=== PATIENT | female | born 1965 | race Caucasian/White ===

== ENCOUNTER 2016-07-10 10:27 | Emergency (ER) | payer MEDICARE ==
[~2016-07-10] VITALS: Ht 162.6 cm; Wt 80.3 kg
[~2016-07-10 10:27] MED LIST: *MAYHAVE; AMBIEN5; ANEXSIA5 PO; ATIV1TAB2; ATIVAN PO; BUSP10TA2; DICLOFENAC PR; EFFEXOR PO; GEOD20CA14; GEODON; GEODON PO; GEODON80; MEDROLDP PO; NYSTATINP TOPICAL; TOPAMAX PO; ULTRAM50 PO; VICO5TAB OR; VOLTAREN PO
[2016-07-10] MEDS ORDERED: XARE20TA PO (11:00)
[2016-07-10] MEDS ORDERED: ATOR1TAB21 PO (11:00)
[2016-07-10] MEDS ORDERED: PERC10TA17 PO (11:00)
[2016-07-10] MEDS ORDERED: LAMI1TAB7 PO (11:00)
[2016-07-10 11:58] LABS: CALCIUM OXALATE CRYSTALS SMALL
[2016-07-10 12:19] LABS: BASO % 0.4 % (0.0-1.0); EOS # 0.3 K/mm3 (0.0-0.50); LARGE UNSTAINED CELL # 0.1 K/mm3 (0.0-0.4); LARGE UNSTAINED CELL % 1.4 % (0.0-4.0); LYMPH # 1.7 K/mm3 (1.5-4.5); LYMPH % 24.2 % (24.0-44.0); MEAN CORPUSCULAR HEMOGLOBIN 32.7 pg (27.0-33.0); MEAN CORPUSCULAR HGB CONC 34.2 g/dl (32.0-36.5); MEAN CORPUSCULAR VOLUME 95.4 fl (80.0-96.0); MONO # 0.4 K/mm3 (0.0-0.8); MONO % 5.6 % (0.0-5.0); NEUTROPHILS # 4.4 K/mm3 (1.8-7.7); NEUTROPHILS % 64.4 % (36.0-66.0); PLATELET COUNT, AUTOMATED 160 k/mm3 (150-450); RED CELL DISTRIBUTION WIDTH 12.2 % (11.5-14.5); WHITE BLOOD COUNT 6.8 K/mm3 (4.0-10.0)
[2016-07-10 12:41] LABS: ALBUMIN/GLOBULIN RATIO 1.14 (1.00-1.93); ALKALINE PHOSPHATASE 73 U/L (45-117); ALT/SGPT 13 U/L (12-78); ANION GAP 5 MEQ/L (8-16); AST/SGOT 10 U/L (15-37); BILIRUBIN,DIRECT 0.1 MG/DL (0.0-0.2); BILIRUBIN,TOTAL 0.5 MG/DL (0.2-1.0); BLOOD UREA NITROGEN 12 MG/DL (7-18); CALCIUM LEVEL 9.5 MG/DL (8.5-10.1); CARBON DIOXIDE LEVEL 28 MEQ/L (21-32); CHLORIDE LEVEL 112 MEQ/L (98-107); CREATININE FOR GFR 0.79 MG/DL (0.55-1.02); GLOMERULAR FILTRATION RATE > 60.0 (>51); GLUCOSE, FASTING 91 MG/DL (70-105); POTASSIUM SERUM 4.5 MEQ/L (3.5-5.1); SODIUM LEVEL 145 MEQ/L (136-145); TOTAL PROTEIN 7.5 GM/DL (6.4-8.2)
[2016-07-10 13:19] VITALS: BP 134/78
--- NOTE | 2016-07-11 06:04 | REP ---
CT ABDOMEN AND PELVIS WITHOUT CONTRAST: HISTORY: Right flank pain. COMPARISON: 04/07/2010. Calcifications are present in the kidneys consistent with nephrolithiasis. There is no hydroureter. The liver, gallbladder, pancreas, spleen and adrenal glands are normal in appearance. There is no mass, adenopathy or free fluid. Linear densities are present in the lower lobes consistent with scarring. Urinary bladder and uterus are normal in appearance. Degenerative change is present in the spine. IMPRESSION: Bilateral nephrolithiasis. Signed by Kodi Momin MD 07/11/2016 08:17 A
== END 2016-07-10 13:20 | disposition home or self-care (01) ==
LOC: M ED 11:26
DX: N20.0 Calculus of kidney (principal); N23 Unspecified renal colic; R11.0 Nausea; E78.00 Pure hypercholesterolemia, unspecified; F31.9 Bipolar disorder, unspecified; Z86.711 Personal history of pulmonary embolism; Z90.89 Acquired absence of other organs; Z79.01 Long term (current) use of anticoagulants; Z87.891 Personal history of nicotine dependence

== ENCOUNTER → 2016-08-22 | Outpatient (CLI) | payer MEDICARE ==
[~2016-08-22] MED LIST changes: +ATOR1TAB21 PO; +ISOVUE-370 76% 100ML VIAL (Q9967) As Ordered ONE; +LAMI1TAB7 PO; +PERC10TA17 PO; +XARE20TA PO
--- NOTE | 2016-08-22 12:55 | REP ---
CT of the chest with IV contrast: Comparisons are 02/24/2015, 05/11/2015 and 02/18/2016. On 2014, there was a large pleural-based density in the left lower lobe. On 05/11/2015 this density had decreased in size but there were new pleural-based densities posteriorly in the left lower lobe, posteriorly in the right lower lobe and in the lateral segment of the right middle lobe. The density in the lateral segment right middle lobe today is unchanged from 04/20/2015, but significantly decreased from 05/11/2015, compatible with parenchymal scar. The densities in the left lower lobe are significantly decreased from 05/11/2015 and unchanged from 04/20/2015, compatible with parenchymal scars. The densities in the right lower lobe are significantly decreased from 05/11/2015 and unchanged from 04/20/2015, compatible with parenchymal scarring. There are no new densities on the study today. There is no mediastinal or axillary adenopathy. No hilar adenopathy. Thoracic aorta is unremarkable. Cardiac size is normal. No pericardial effusion. The visualized upper abdominal contents are unremarkable. There is no adrenal mass. Impression: All of the previous lung densities have decreased in size compared to 05/11/2015, and are stable from 02/18/2016, compatible with parenchymal scarring. No new densities are identified. Signed by Jairo Gómez MD 08/22/2016 12:46 P
== END ==
LOC: M RAD 10:50
PROVIDERS: ATTEND Family Medicine
DX: R91.8 Other nonspecific abnormal finding of lung field (principal)
CPT/HCPCS: 71260; Q9967

== ENCOUNTER 2016-10-01 13:51 | Emergency (ER) | payer MEDICARE ==
[~2016-10-01] VITALS: Ht 162.6 cm; Wt 84.3 kg
[~2016-10-01 13:51] MED LIST changes: -ISOVUE-370 76% 100ML VIAL (Q9967) As Ordered ONE; -PERC10TA17 PO; +PERC10TA26 PO
[2016-10-01] MEDS ORDERED: AMPICILLIN SOD/SULBACTAM SOD 3 GM in D5W MINI-BAG PLUS 100 ML IV ONE (14:15)
[2016-10-01 14:31] LABS: BASO % 0.7 % (0.0-1.0); EOS # 0.2 K/mm3 (0.0-0.50); EOS % 3.5 % (0.0-3.0); LARGE UNSTAINED CELL # 0.1 K/mm3 (0.0-0.4); LYMPH # 2.1 K/mm3 (1.5-4.5); LYMPH % 28.8 % (24.0-44.0); MEAN CORPUSCULAR HEMOGLOBIN 31.8 pg (27.0-33.0); MEAN CORPUSCULAR HGB CONC 33.4 g/dl (32.0-36.5); MEAN CORPUSCULAR VOLUME 95.2 fl (80.0-96.0); MONO # 0.4 K/mm3 (0.0-0.8); MONO % 5.1 % (0.0-5.0); NEUTROPHILS # 4.3 K/mm3 (1.8-7.7); NEUTROPHILS % 60.9 % (36.0-66.0); PLATELET COUNT, AUTOMATED 164 k/mm3 (150-450); RED CELL DISTRIBUTION WIDTH 12.7 % (11.5-14.5); WHITE BLOOD COUNT 7.1 K/mm3 (4.0-10.0)
[2016-10-01 14:52] LABS: ANION GAP 9 MEQ/L (8-16); BLOOD UREA NITROGEN 8 MG/DL (7-18); CALCIUM LEVEL 9.3 MG/DL (8.5-10.1); CARBON DIOXIDE LEVEL 24 MEQ/L (21-32); CHLORIDE LEVEL 112 MEQ/L (98-107); CREATININE FOR GFR 0.83 MG/DL (0.55-1.02); GLOMERULAR FILTRATION RATE > 60.0 (>51); GLUCOSE, FASTING 85 MG/DL (70-105); POTASSIUM SERUM 4.3 MEQ/L (3.5-5.1); SODIUM LEVEL 145 MEQ/L (136-145)
[2016-10-01] MEDS ORDERED: AUGM875T28 PO (15:19)
[2016-10-01 15:29] VITALS: BP 137/78
== END 2016-10-01 15:41 | disposition home or self-care (01) ==
LOC: M ED 13:51
DX: K04.7 Periapical abscess without sinus (principal); E78.00 Pure hypercholesterolemia, unspecified; F41.9 Anxiety disorder, unspecified; F43.10 Post-traumatic stress disorder, unspecified; F31.9 Bipolar disorder, unspecified; Z79.01 Long term (current) use of anticoagulants; Z79.899 Other long term (current) drug therapy; Z90.89 Acquired absence of other organs; Z86.711 Personal history of pulmonary embolism

== ENCOUNTER → 2017-05-08 | Outpatient (CLI) | payer MEDICARE ==
[2017-05-08 10:36] LABS: HEMOGLOBIN 15.2 g/dl (12.0-16.0)
[2017-05-08 10:57] LABS: INR 1.15; PROTHROMBIN TIME 14.9 SECONDS (12.4-14.5)
[2017-05-08 10:58] LABS: PARTIAL THROMBOPLASTIN TIME 34.2 SECONDS (26.8-37.9)
== END ==
LOC: M ADMPAT 09:31
DX: Z01.818 Encounter for other preprocedural examination (principal); M48.00 Spinal stenosis, site unspecified
CPT/HCPCS: 85018

== ENCOUNTER 2017-05-15 08:49 | Inpatient (IN) | payer MEDICARE ==
[2017-05-15] MEDS ORDERED: LIDOCAINE 1% MDV 20ML VIAL SQ (09:00)
[2017-05-15] MEDS: ATORVASTATIN 20 MG TAB PO (09:00)
[2017-05-15] MEDS: lamoTRIgine 100MG TAB PO (09:00)
[2017-05-15] MEDS ORDERED: ROCURONIUM BROMIDE 50 MG/5 ML VIAL As Ordered ×2 (10:03→13:38)
[2017-05-15] MEDS ORDERED: LIDOCAINE 2% INJ 100 MG/5 ML SDV (FOR ANES.) As Ordered (10:03)
[2017-05-15] MEDS ORDERED: fentaNYL 100 MCG/2 ML INJECTION (J3010) As Ordered ×4 (10:04→15:53)
[2017-05-15] MEDS ORDERED: PROPOFOL 200 MG/20 ML VIAL As Ordered ×2 (10:04→14:47)
[2017-05-15] MEDS: LR 1,000 ML IV ×2 (10:20→16:15)
[2017-05-15] MEDS ORDERED: CEFAZOLIN 100MG/ML SYRINGE 1GM(J0690 PER 500MG) As Ordered (11:50)
[2017-05-15] MEDS: PREGABALIN 75 MG CAP(LYRICA) PO (12:00)
[2017-05-15] MEDS: PERCOCET 5MG/325MG TAB PO ×4 (12:00→21:01)
[2017-05-15] MEDS: NYSTATIN CREAM 15 GM TOP ×2 (12:00→21:00)
[2017-05-15] MEDS: CelecoXIB 400 MG CAP PO (12:00)
[2017-05-15] MEDS: CEFAZOLIN SOD 1 GM in APPROPRIATE DILUENT 1 EA IV (12:49)
[2017-05-15] MEDS: LIDOCAINE W/EPINEPHRINE 1% 20ML VIAL As Ordered (13:05)
[2017-05-15] MEDS ORDERED: dexameTHASONE 4 MG/ML 1ML VIAL (J1100) As Ordered (13:09)
[2017-05-15] MEDS ORDERED: ONDANSETRON 4MG/2ML VIAL (J2405) As Ordered (13:24)
[2017-05-15] MEDS ORDERED: MIDAZOLAM INJ 2 MG/2 ML VIAL (J2250) As Ordered (13:24)
[2017-05-15] MEDS ORDERED: GLYCOPYRROLATE INJ 0.2 MG/ML 2 ML VIAL As Ordered (13:24)
[2017-05-15] MEDS ORDERED: NEOSTIGMINE 10 MG/10 ML VIAL (J2710) As Ordered (13:25)
[2017-05-15] MEDS: THROMBIN SOLN 20,000 UNITS KIT As Ordered (13:29)
[2017-05-15] MEDS: BACITRACIN PWD 50,000 UNITS VIAL As Ordered (13:42)
[2017-05-15] MEDS ORDERED: PHENYLEPHRINE INJ 10MG/ML VIAL (J2370) As Ordered (15:13)
[2017-05-15] MEDS: BUPIVACAINE LIPOSOME/PF 1.3% 20 ML VIAL (13.3MG/ML)(EXPAREL) As Ordered (15:30)
[2017-05-15] MEDS: BUPIVACAINE HCL 0.5% 10 ML VIAL As Ordered (15:30)
[2017-05-15] MEDS ORDERED: HYDROmorphone HCL 1 MG/ML SYRINGE (J1170) As Ordered (16:01)
[2017-05-15] MEDS: HYDROmorphone HCL 1 MG/ML SYRINGE (J1170) IV ×8 (16:12→17:18)
[2017-05-15] MEDS ORDERED: fentaNYL 100 MCG/2 ML INJECTION (J3010) IV (16:15)
[2017-05-15] MEDS ORDERED: ONDANSETRON 4MG/2ML VIAL (J2405) IV (16:15)
[2017-05-15] MEDS ORDERED: HYDROmorphone HCL 1 MG/ML SYRINGE (J1170) IV ×2 (16:30)
[2017-05-15] MEDS: D5W/LR 1,000 ML IV (18:30)
[2017-05-15] MEDS ORDERED: PERCOCET 5MG/325MG TAB PO (18:30)
[2017-05-15] MEDS: TOPIRAMATE (TopAMAX) 100 MG TAB PO (21:00)
[2017-05-16] MEDS: PERCOCET 5MG/325MG TAB PO ×3 (03:50→15:47)
[2017-05-16 06:46] LABS: BASO % 0.4 % (0.0-1.0); EOS # 0.1 10^3/uL (0.0-0.50); EOS % 0.5 % (0.0-3.0); HEMATOCRIT 38.1 % (36.0-47.0); HEMOGLOBIN 12.6 g/dl (12.0-16.0); IMMATURE GRANULOCYTE % 0.5 % (0-3.0); LYMPH # 2.5 10^3/uL (1.5-4.5); LYMPH % 24.1 % (24.0-44.0); MEAN CORPUSCULAR HEMOGLOBIN 31.1 pg (27.0-33.0); MEAN CORPUSCULAR HGB CONC 33.1 g/dl (32.0-36.5); MEAN CORPUSCULAR VOLUME 94.1 fl (80.0-96.0); MONO # 0.9 10^3/uL (0.0-0.8); MONO % 8.5 % (0.0-5.0); NEUTROPHILS # 6.7 10^3/uL (1.8-7.7); PLATELET COUNT, AUTOMATED 132 10^3/uL (150-450); RED BLOOD COUNT 4.05 10^6/uL (4.00-5.40); RED CELL DISTRIBUTION WIDTH 12.3 % (11.5-14.5); WHITE BLOOD COUNT 10.2 10^3/uL (4.0-10.0)
[2017-05-16 07:01] LABS: ANION GAP 6 MEQ/L (8-16); BLOOD UREA NITROGEN 11 MG/DL (7-18); CALCIUM LEVEL 8.4 MG/DL (8.5-10.1); CARBON DIOXIDE LEVEL 26 MEQ/L (21-32); CHLORIDE LEVEL 110 MEQ/L (98-107); CREATININE FOR GFR 0.76 MG/DL (0.55-1.30); GLOMERULAR FILTRATION RATE > 60.0 (>51); GLUCOSE, FASTING 112 MG/DL (70-100); POTASSIUM SERUM 3.5 MEQ/L (3.5-5.1); SODIUM LEVEL 142 MEQ/L (136-145)
[2017-05-16] MEDS: TIOTROPIUM INHALER/CAPSULE (SPIRIVA) INH (07:14)
[2017-05-16] MEDS: METAMUCIL (PSYLLIUM) PACKET PO (08:43)
[2017-05-16] MEDS: MOM 30ML SUSPENSION UDC PO (08:43)
[2017-05-16] MEDS: ATORVASTATIN 20 MG TAB PO (08:43)
[2017-05-16] MEDS: TOPIRAMATE (TopAMAX) 100 MG TAB PO ×2 (08:43→20:28)
[2017-05-16] MEDS: lamoTRIgine 100MG TAB PO (08:43)
[2017-05-16] MEDS: NYSTATIN CREAM 15 GM TOP ×2 (08:44→20:29)
[2017-05-16] MEDS: tiZANidine 4 MG TAB PO (20:28)
[2017-05-16] MEDS: LORazepam 1 MG TAB PO (20:28)
[2017-05-17] MEDS: tiZANidine 4 MG TAB PO (05:23)
[2017-05-17] MEDS: PERCOCET 5MG/325MG TAB PO ×2 (05:24→10:31)
[2017-05-17] MEDS: TIOTROPIUM INHALER/CAPSULE (SPIRIVA) INH (07:19)
[2017-05-17] MEDS: lamoTRIgine 100MG TAB PO (08:44)
[2017-05-17] MEDS: ATORVASTATIN 20 MG TAB PO (08:44)
[2017-05-17] MEDS: MOM 30ML SUSPENSION UDC PO (08:45)
[2017-05-17] MEDS: MORPHINE 15 MG SA TAB PO (08:45)
[2017-05-17] MEDS: TOPIRAMATE (TopAMAX) 100 MG TAB PO (08:45)
[2017-05-17] MEDS: NYSTATIN CREAM 15 GM TOP (08:45)
[2017-05-17] MEDS: METAMUCIL (PSYLLIUM) PACKET PO (08:45)
[2017-05-17] MEDS: CelecoXIB 400 MG CAP PO (10:31)
[2017-05-17] MEDS ORDERED: RIVAROXABAN 20 MG TAB (XARELTO) PO (18:00)
== END 2017-05-17 12:55 | disposition home or self-care (01) | DRG 520 ==
LOC: M OR 08:49 → M MS5PR 17:35
PROC: 00NY0ZZ Release Lumbar Spinal Cord, Open Approach (ICD-10-PCS; principal; 2017-05-15 10:30)
PROC: 0QB00ZZ Excision of Lumbar Vertebra, Open Approach (ICD-10-PCS; 2017-05-15 10:30)
DX: M51.26 Other intervertebral disc displacement, lumbar region (principal); M48.061 Spinal stenosis, lumbar region without neurogenic claudication; M43.16 Spondylolisthesis, lumbar region; E78.5 Hyperlipidemia, unspecified; F41.9 Anxiety disorder, unspecified; F31.9 Bipolar disorder, unspecified; R32 Unspecified urinary incontinence; Z86.711 Personal history of pulmonary embolism; Z79.01 Long term (current) use of anticoagulants; Z79.899 Other long term (current) drug therapy; Z86.718 Personal history of other venous thrombosis and embolism; Z87.891 Personal history of nicotine dependence

== ENCOUNTER → 2017-10-02 | Outpatient (CLI) | payer MEDICARE | LOC: M WHC 13:16 | DX: Z12.31 Encounter for screening mammogram for malignant neoplasm of breast (principal) | CPT/HCPCS: 77067 ==

== ENCOUNTER → 2017-10-19 | Outpatient (CLI) | payer MEDICARE ==
[2017-10-19 11:56] LABS: BASO # 0.1 10^3/uL (0.0-0.2); EOS # 0.1 10^3/uL (0.0-0.50); EOS % 2.8 % (0.0-3.0); HEMATOCRIT 45.9 % (36.0-47.0); HEMOGLOBIN 15.3 g/dl (12.0-15.5); IMMATURE GRANULOCYTE % 0.2 % (0-3.0); LYMPH # 1.8 10^3/uL (1.5-4.5); LYMPH % 35.8 % (24.0-44.0); MEAN CORPUSCULAR HEMOGLOBIN 30.8 pg (27.0-33.0); MEAN CORPUSCULAR HGB CONC 33.3 g/dl (32.0-36.5); MEAN CORPUSCULAR VOLUME 92.5 fl (80.0-96.0); MONO # 0.4 10^3/uL (0.0-0.8); MONO % 7.9 % (0.0-5.0); NEUTROPHILS # 2.7 10^3/uL (1.8-7.7); NEUTROPHILS % 52.3 % (36.0-66.0); PLATELET COUNT, AUTOMATED 148 10^3/uL (150-450); RED BLOOD COUNT 4.96 10^6/uL (4.00-5.40); RED CELL DISTRIBUTION WIDTH 12.7 % (11.5-14.5); WHITE BLOOD COUNT 5.1 10^3/uL (4.0-10.0)
[2017-10-19 14:40] LABS: ALBUMIN/GLOBULIN RATIO 1.18 (1.00-1.93); ALKALINE PHOSPHATASE 89 U/L (45-117); ALT/SGPT 17 U/L (12-78); ANION GAP 10 MEQ/L (8-16); AST/SGOT 7 U/L (7-37); BILIRUBIN,TOTAL 0.4 MG/DL (0.2-1.0); BLOOD UREA NITROGEN 17 MG/DL (7-18); CARBON DIOXIDE LEVEL 23 MEQ/L (21-32); CHLORIDE LEVEL 113 MEQ/L (98-107); CHOLESTEROL LEVEL 167 MG/DL (<200); CHOLESTEROL RISK RATIO 3.479 (<5); CREATININE FOR GFR 0.85 MG/DL (0.55-1.30); GLOMERULAR FILTRATION RATE > 60.0 (>51); GLUCOSE, FASTING 84 MG/DL (70-100); HDL CHOLESTEROL 48 MG/DL (>40); LDL CHOLESTEROL 96.8 MG/DL (<100); NON-HDL-C 119 MG/DL; POTASSIUM SERUM 4.1 MEQ/L (3.5-5.1); SODIUM LEVEL 146 MEQ/L (136-145); THYROID STIMULATING HORMONE 0.849 uIU/ML (0.358-3.740); TOTAL PROTEIN 7.4 GM/DL (6.4-8.2); TRIGLYCERIDES LEVEL 111 MG/DL (<150)
== END ==
LOC: M LAB 11:19
DX: Z79.899 Other long term (current) drug therapy (principal)
CPT/HCPCS: 84443

== ENCOUNTER → 2018-07-06 | Outpatient (CLI) | payer MEDICARE ==
[~2018-07-06] MED LIST changes: +AUGM875T28 PO; +CHAN1PAK13
[2018-07-06 11:05] LABS: BASO # 0.1 10^3/uL (0.0-0.2); BASO % 0.7 % (0.0-1.0); EOS # 0.3 10^3/uL (0.0-0.50); EOS % 4.4 % (0.0-3.0); HEMATOCRIT 46.7 % (36.0-47.0); HEMOGLOBIN 15.1 g/dl (12.0-15.5); LYMPH % 29.9 % (24.0-44.0); MEAN CORPUSCULAR HEMOGLOBIN 29.8 pg (27.0-33.0); MEAN CORPUSCULAR HGB CONC 32.3 g/dl (32.0-36.5); MEAN CORPUSCULAR VOLUME 92.3 fl (80.0-96.0); MONO # 0.5 10^3/uL (0.0-0.8); NEUTROPHILS # 3.9 10^3/uL (1.8-7.7); NEUTROPHILS % 56.9 % (36.0-66.0); PLATELET COUNT, AUTOMATED 142 10^3/uL (150-450); RED BLOOD COUNT 5.06 10^6/uL (4.00-5.40); WHITE BLOOD COUNT 6.8 10^3/uL (4.0-10.0)
[2018-07-06 11:46] LABS: ALBUMIN 3.9 GM/DL (3.2-5.2); ALT/SGPT 16 U/L (12-78); BILIRUBIN,TOTAL 0.3 MG/DL (0.2-1.0); BLOOD UREA NITROGEN 13 MG/DL (7-18); CALCIUM LEVEL 8.9 MG/DL (8.5-10.1); CARBON DIOXIDE LEVEL 26 MEQ/L (21-32); CHLORIDE LEVEL 111 MEQ/L (98-107); CREATININE FOR GFR 0.74 MG/DL (0.55-1.30); GLOMERULAR FILTRATION RATE > 60.0 (>51); GLUCOSE, FASTING 89 MG/DL (70-100); POTASSIUM SERUM 4.3 MEQ/L (3.5-5.1); SODIUM LEVEL 143 MEQ/L (136-145)
== END ==
LOC: M LAB 10:25
PROVIDERS: ATTEND Family Medicine
DX: R63.5 Abnormal weight gain (principal); R60.9 Edema, unspecified

== ENCOUNTER → 2018-10-23 | Outpatient (CLI) | payer MEDICARE ==
--- NOTE | 2018-10-23 14:41 | REPMRS ---
Patient History The patient states she has not had a clinical breast exam in over a year. Family history of breast cancer at age 50 or over in paternal grandmother. Digital Woman Screen Mammo: October 23, 2018 - Exam #: [id number] Bilateral CC and MLO view(s) were taken. Technologist: Argenis Stark, Technologist Prior study comparison: October 02, 2017, bilateral digital woman screen mammo performed at [facility]. November 27, 2015, digital woman screen mammo performed at [facility]. November 25, 2014, digital woman screen mammo performed at [facility]. FINDINGS: The breast tissue is almost entirely fat. There has been no change in the appearance of the mammogram from the prior studies. There is no interval development of dominant mass, architectural distortion, or grouped microcalcification typical of malignancy. 3-D tomosynthesis shows no additional findings. Assessment: BI-RADS/ACR category 1 mammogram. Negative Mammogram. Recommendation Routine screening mammogram of both breasts in 1 year (for women over age 40). This patient's Lifetime Breast Cancer RIsk is estimated at 13.2 %. This mammogram was interpreted with the aid of an FDA-approved computer-aided dectection system. Electronically Signed By: Omar Herrmann MD 10/23/18 0923
== END ==
LOC: M WHC 13:00
PROVIDERS: ATTEND Family Medicine
DX: Z12.31 Encounter for screening mammogram for malignant neoplasm of breast (principal)

== ENCOUNTER 2018-12-06 11:09 | Emergency (ER) | payer MEDICARE ==
[~2018-12-06] VITALS: Ht 160 cm; Wt 104.4 kg
[2018-12-06 11:11] VITALS: BP 123/75
[2018-12-06] MEDS ORDERED: TOPI200T7 PO (11:35)
[2018-12-06] MEDS ORDERED: PRED10TA2 PO (12:15)
== END 2018-12-06 12:26 | disposition home or self-care (01) ==
LOC: M ED 11:09
DX: M54.10 Radiculopathy, site unspecified (principal); M48.00 Spinal stenosis, site unspecified; R53.1 Weakness; F17.210 Nicotine dependence, cigarettes, uncomplicated; Z86.711 Personal history of pulmonary embolism; Z79.01 Long term (current) use of anticoagulants; Z79.899 Other long term (current) drug therapy

== ENCOUNTER → 2018-12-07 | Outpatient (CLI) | payer MEDICARE ==
[~2018-12-07] MED LIST changes: +PRED10TA2 PO; +TOPI200T7 PO
--- NOTE | 2018-12-07 20:11 | REP ---
MRI LUMBAR SPINE WITHOUT CONTRAST: 12/07/2018. Comparison: 06/27/2017 without and with contrast MR. Clinical history: Intermittent weakness bilateral lower extremities, spinal stenosis. Prior left L3-4 through L5-S1 laminectomy. Technique: Sagittal T1, T2, STIR with axial T1 and T2 sequences provided. Findings: Normal lordosis noted on the sagittal images. Disc space is narrowed and disc signal lost at L4-5. There is slight narrowing at L1-2. That disc space also shows loss of water signal. There is relative sparing of height and water signal at L2-3 with loss of height at L3-4 with loss of disc water signal and loss of water signal at L5-S1. There is no compression deformity or destructive lesion. Vertebral hemangioma at T11. Conus terminates at the T12-L1 disc level. The T11-12 and T12-L1 disc levels show no disc bulge or herniation and no spinal or foraminal stenosis. At L1-2, there is a broad-based diffuse disc bulge with ligamentum and facet hypertrophy. These combine to cause minimal central canal stenosis with crowding of the nerve roots. The foramina appeared adequate. At L2-3, there is also diffuse disc bulge with ligamentum and facet hypertrophy. Minimal central canal stenosis and flattening of the ventral thecal sac noted. Foramina adequate without L2 nerve root compression on either side. At L3-L4, there is a diffuse disc bulge and a central disc protrusion which has decreased in size from the previous study. Where it measured 7.2 mm in AP dimension on the axial or sagittal image it now only represents 4 mm thickness. There is less central canal stenosis but still crowded nerve roots indicating mild central canal stenosis and contributions from ligamentum and facet hypertrophy. Left hemilaminectomy again noted. The L3 nerve roots show no definite compression on the right. There is some narrowing of the foramen on the left slightly compressing the L3 nerve root. At L4-5, there is mild broad-based disc bulge with small central disc protrusion. Ligamentum and facet hypertrophy are noted particularly on the left facets. Left hemilaminectomy again noted. The cross-sectional area of the central canal was marginally adequate. There is foraminal encroachment bilaterally at this level unchanged. At L5-S1, there is a broad-based disc bulge with left paracentral and intraforaminal disc protrusion again seen. This abuts and slightly displaces the left S1 nerve root in the central canal. Facet hypertrophy is noted. A few millimeters of anterolisthesis of L5 on S1 is noted, felt related to facet arthropathy. Both L5 nerve roots show compression within the foramina. Left laminectomy defect again seen. Impression: 1. Multilevel lumbar spondylosis with minimal central canal stenosis at L1-2 and L2-3 secondary to combined factors. 2. The disc extrusion at L3-4 centrally is smaller than on the previous study with its AP thickness now 4 mm instead of 7.2 mm. Central canal stenosis is unchanged. Foramina without nerve root compression on the right, mild compression on the left for the L3 root. The L3-L4 level is the only significant change in the examination today. 3. The L4-5 disc level shows broad-based disc bulge and mild central disc protrusion with ligamentum and facet hypertrophy with minimal central canal stenosis and bilateral foraminal encroachment, all unchanged. Laminectomy defect at L3-4 through L5-S1 on the left. 4. The L5-S1 level shows left paracentral and intraforaminal disc protrusion which abuts and displaces the S1 nerve root in the left side of the central canal and both foramina show L5 nerve root compression. No other finding. Electronically Signed by Stiven Quiroga MD 12/07/2018 08:31 P
== END ==
LOC: M RAD 18:19
PROVIDERS: ATTEND Emergency Medicine
DX: M47.896 Other spondylosis, lumbar region (principal); M51.27 Other intervertebral disc displacement, lumbosacral region; M51.26 Other intervertebral disc displacement, lumbar region

== ENCOUNTER → 2019-09-04 | Outpatient (CLI) | payer MEDICARE ==
--- NOTE | 2019-09-04 15:36 | REP ---
CHEST, TWO VIEWS: COMPARISON: 09/01/2015 PA and lateral views of the chest is performed. There is no evidence of acute infiltrate. There is mild fibrotic scarring of the lung bases bilaterally. The heart is normal in size. Mediastinal silhouette is unremarkable. There are degenerative changes of the spine. IMPRESSION: Mild chronic changes with no evidence of acute pulmonary disease. Electronically Signed by Jairo Thornton MD 09/04/2019 07:39 P
== END ==
LOC: M RAD 13:19 → M LAB 13:19
PROVIDERS: ATTEND Family Medicine
DX: J98.4 Other disorders of lung (principal); M51.9 Unspecified thoracic, thoracolumbar and lumbosacral intervertebral disc disorder

== ENCOUNTER → 2019-10-11 | Outpatient (CLI) | payer MEDICARE, SELFPAY | LOC: M LABSMTC 12:00 | PROVIDERS: ATTEND Pediatrics | DX: Z20.828 Contact with and (suspected) exposure to other viral communicable diseases (principal); Z11.59 Encounter for screening for other viral diseases ==

== ENCOUNTER → 2019-11-15 | Outpatient (CLI) | payer MEDICARE ==
--- NOTE | 2019-11-15 14:09 | REPMRS ---
Patient History The patient states she has not had a clinical breast exam in over a year. Family history of breast cancer at age 50 or over in paternal grandmother. No Hormone Replacement Therapy 3D TOMOSYNTHESIS WAS PERFORMED. [facility] lifetime risk for breast cancer is 12.9%. [place] DENSITY A. Digital Woman Screen Mammo: November 15, 2019 - Exam #: [id number] Bilateral CC and MLO view(s) were taken. Technologist: Dot Gill, Technologist Prior study comparison: October 23, 2018, bilateral digital woman screen mammo performed at [facility]. October 02, 2017, bilateral digital woman screen mammo performed at [facility]. FINDINGS: There are scattered fibroglandular densities. There has been no change in the appearance of the mammogram from the prior studies. There is a mild amount of residual fibroglandular tissue which is fairly symmetric. There is no interval development of dominant mass, architectural distortion, or clustered microcalcification suggestive of malignancy. Assessment: BI-RADS/ACR category 1 mammogram. Negative Mammogram. Recommendation Routine screening mammogram in 1 year (for women over age 40). This mammogram was interpreted with the aid of an FDA-approved computer-aided dectection system. Electronically Signed By: Jairo Thornton MD 11/15/19 [id number]
== END ==
LOC: M WHC 12:03
PROVIDERS: ATTEND Family Medicine
DX: Z12.31 Encounter for screening mammogram for malignant neoplasm of breast (principal)

== ENCOUNTER → 2020-08-19 | Outpatient (CLI) | payer MEDICARE ==
--- NOTE | 2020-08-19 11:41 | REP ---
INDICATION: CENTRILOBULAR EMPHYSEMA. COMPARISON: Multiple FINDINGS: The superior mediastinal structures are midline. The cardiac silhouette is unremarkable in size, shape, and position. The diaphragmatic surfaces of the lungs are regular, and the costophrenic angles are clear. The pulmonary jenkins are unchanged. Slight bibasilar curvilinear densities are noted status quo. The imaged osseous structures are intact. IMPRESSION: There is no acute cardiopulmonary disease. <Electronically signed by Sonny De La Garza > 08/19/20 [id number]
[2020-08-19 11:44] LABS: BASO # 0.1 10^3/uL (0.0-0.2); EOS # 0.3 10^3/uL (0.0-0.5); EOS % 3.9 % (0.0-3.0); HEMATOCRIT 49.1 % (36.0-47.0); HEMOGLOBIN 15.7 g/dl (12.0-15.5); LYMPH # 1.9 10^3/uL (1.5-5.0); LYMPH % 28.7 % (24.0-44.0); MEAN CORPUSCULAR HEMOGLOBIN 30.5 pg (27.0-33.0); MEAN CORPUSCULAR VOLUME 95.3 fl (80.0-96.0); MONO # 0.4 10^3/uL (0.0-0.8); MONO % 6.3 % (2.0-8.0); NEUTROPHILS % 59.8 % (36.0-66.0); PLATELET COUNT, AUTOMATED 157 10^3/uL (150-450); RED BLOOD COUNT 5.15 10^6/uL (4.00-5.40); WHITE BLOOD COUNT 6.7 10^3/uL (4.0-10.0)
[2020-08-19 12:35] LABS: ALBUMIN 3.8 GM/DL (3.2-5.2); ALT/SGPT 19 U/L (12-78); BILIRUBIN,TOTAL 0.4 MG/DL (0.2-1.0); BLOOD UREA NITROGEN 13 MG/DL (7-18); CALCIUM LEVEL 8.8 MG/DL (8.5-10.1); CARBON DIOXIDE LEVEL 23 MEQ/L (21-32); CHLORIDE LEVEL 112 MEQ/L (98-107); CHOLESTEROL LEVEL 174 MG/DL (<200); CHOLESTEROL RISK RATIO 4.046 (<5); CREATININE FOR GFR 0.75 MG/DL (0.55-1.30); GLOMERULAR FILTRATION RATE > 60.0 (>51); GLUCOSE, FASTING 89 MG/DL (70-100); HDL CHOLESTEROL 43 MG/DL (>40); LDL CHOLESTEROL 95 MG/DL (<100); NON-HDL-C 131 MG/DL; POTASSIUM SERUM 4.5 MEQ/L (3.5-5.1); SODIUM LEVEL 145 MEQ/L (136-145); THYROID STIMULATING HORMONE 0.953 uIU/ML (0.358-3.740); TOTAL PROTEIN 7.2 GM/DL (6.4-8.2); TRIGLYCERIDES LEVEL 179 MG/DL (<150)
[2020-08-19 19:37] LABS: HEMOGLOBIN A1c 5.1 %
== END ==
LOC: M LAB 10:59
PROVIDERS: ATTEND Family Medicine
DX: Z79.899 Other long term (current) drug therapy (principal)

== ENCOUNTER → 2020-09-11 | Outpatient (CLI) | payer MEDICARE ==
[~2020-09-11] MED LIST changes: +LATU20TA PO; +LORA1TAB4 PO; +PROAAER10 INH; +SPIR12.9 INH; +TERB250T12 PO
== END ==
LOC: M LABSMTC 12:21
PROVIDERS: ATTEND Anesthesiology
DX: Z01.818 Encounter for other preprocedural examination (principal); Z11.52 Encounter for screening for COVID-19

== ENCOUNTER → 2020-11-24 | Outpatient (CLI) | payer MEDICARE ==
[~2020-11-24] MED LIST changes: -TERB250T12 PO; +TERB250T91 PO
--- NOTE | 2020-11-24 11:50 | REPMRS ---
Patient History The patient states she has not had a clinical breast exam in over a year. Family history of breast cancer at age 50 or over in paternal grandmother. No Hormone Replacement Therapy Patient states no breast complaints today. Patient has signed MRS History Sheet. Digital Woman Screen Mammo: November 24, 2020 - Exam #: [id number] Bilateral CC and MLO view(s) were taken. Technologist: Argenis Stark, Technologist Prior study comparison: November 15, 2019, bilateral digital woman screen mammo performed at [facility]. October 23, 2018, bilateral digital woman screen mammo performed at [facility]. FINDINGS: There are scattered fibroglandular densities. Screening. Digital screening (2D) mammography was performed bilaterally in the CC and MLO projections. Additionally, breast tomosynthesis (3D mammography) was performed bilaterally in the CC and MLO projections. Todays exam was compared to the prior exam/exams. By history, the patient has no complaints of a palpable breast abnormality or other significant breast complaints. The breasts are unchanged in size and shape. There are no kirstie-soft tissue densities or spiculated masses. There is no internal architectural distortion. There are no suspicious kirstie-calcific clusters. Skin thickening or nipple retraction is not present. IMPRESSION: BI-RADS Category 2- Benign Findings. There is no evidence of malignant alteration of the breasts. Followup examination recommended in one year. The [place] volumetric breast density category is B, there are scattered areas of fibroglandular densities. This mammogram was read with the assistance of [facility],an FDA approved computer aided detection system for mammography. The lifetime Tyrer-Cuzick score is 12.6 % Negative x-ray reports should not delay surgical consultation if a dominant or clinically suspicious mass is present. Not all breast cancers can be identified by mammography. Therefore, we recommend that you continue to perform regular breast self-examination and physical examination and then promptly contact your physician of any concerns or changes. Adenosis and dense breasts may obscure an underlying neoplasm. Assessment: BI-RADS/ACR category 2 mammogram. Benign Findings. Recommendation Routine screening mammogram of both breasts in 1 year. Electronically Signed By: Sonny De La Garza DO 11/24/20 [id number]
== END ==
LOC: M WHC 09:16
PROVIDERS: ATTEND Family Medicine
DX: Z12.31 Encounter for screening mammogram for malignant neoplasm of breast (principal)

== ENCOUNTER → 2021-01-22 | Outpatient (CLI) | payer MEDICARE ==
[2021-01-22 19:53] LABS: BASO % 0.6 % (0.0-1.0); EOS # 0.1 10^3/uL (0.0-0.5); EOS % 2.1 % (0.0-3.0); HEMATOCRIT 49.6 % (36.0-47.0); HEMOGLOBIN 16.2 g/dl (12.0-15.5); LYMPH # 2.3 10^3/uL (1.5-5.0); LYMPH % 33.9 % (24.0-44.0); MEAN CORPUSCULAR HEMOGLOBIN 31.2 pg (27.0-33.0); MEAN CORPUSCULAR HGB CONC 32.7 g/dl (32.0-36.5); MEAN CORPUSCULAR VOLUME 95.6 fl (80.0-96.0); MONO # 0.5 10^3/uL (0.0-0.8); MONO % 7.8 % (2.0-8.0); NEUTROPHILS # 3.8 10^3/uL (1.5-8.5); NEUTROPHILS % 55.5 % (36.0-66.0); PLATELET COUNT, AUTOMATED 168 10^3/uL (150-450); RED BLOOD COUNT 5.19 10^6/uL (4.00-5.40); WHITE BLOOD COUNT 6.8 10^3/uL (4.0-10.0)
[2021-01-22 20:14] LABS: ERYTHROCYTE SEDIMENTATION RATE 4 mm/hr (0-30)
[2021-01-22 20:25] LABS: ALBUMIN 4.3 GM/DL (3.2-5.2); ALT/SGPT 17 U/L (12-78); BILIRUBIN,TOTAL 0.4 MG/DL (0.2-1.0); BLOOD UREA NITROGEN 9 MG/DL (7-18); C REACTIVE PROTEIN QUANTITATIV 0.37 MG/DL (0.00-0.30); CALCIUM LEVEL 9.6 MG/DL (8.5-10.1); CARBON DIOXIDE LEVEL 23 MEQ/L (21-32); CHLORIDE LEVEL 112 MEQ/L (98-107); GLOMERULAR FILTRATION RATE > 60.0 (>51); GLUCOSE, FASTING 91 MG/DL (70-100); POTASSIUM SERUM 3.9 MEQ/L (3.5-5.1); SODIUM LEVEL 142 MEQ/L (136-145); TOTAL PROTEIN 7.5 GM/DL (6.4-8.2)
[2021-01-25 19:07] LABS: EBV AB TO NUCLEAR ANTIGEN >600.0 U/mL (0.0-17.9); EBV VIRAL CAPSID AG IgG >600.0 U/mL (0.0-17.9); EBV VIRAL CAPSID AG IgM <36.0 U/mL (0.0-35.9); Lyme Disease IgG/IgM Antibodie <0.91 ISR (0.00-0.90); Lyme Disease IgM Ab Quantitati <0.80 index (0.00-0.79)
== END ==
LOC: M WUC 15:07
PROVIDERS: ATTEND Nurse Practitioner Family
DX: R53.83 Other fatigue (principal); R21 Rash and other nonspecific skin eruption

== ENCOUNTER → 2021-05-04 | Outpatient (CLI) | payer MEDICARE | LOC: M PLAIMG 11:16 | PROVIDERS: ATTEND Family Medicine | DX: M25.511 Pain in right shoulder (principal); M19.011 Primary osteoarthritis, right shoulder ==

== ENCOUNTER → 2021-07-16 | Outpatient (CLI) | payer MEDICARE ==
[~2021-07-16] MED LIST changes: +CVS1CHW58 PO
== END ==
LOC: M LABSMTC 10:17
PROVIDERS: ATTEND Anesthesiology
DX: Z01.812 Encounter for preprocedural laboratory examination (principal); Z20.822 Contact with and (suspected) exposure to COVID-19

== ENCOUNTER 2021-07-21 09:36 | Day surgery (SDC) | payer MEDICARE ==
[~2021-07-21] VITALS: Ht 160 cm; Wt 95.3 kg
[~2021-07-21 09:36] MED LIST changes: +NS 1,000 ML IV ONE
[2021-07-21] MEDS ORDERED: LIDOCAINE 2% 100MG/5ML SDV (FOR ANES.) As Ordered ONE (10:34)
[2021-07-21] MEDS ORDERED: propofoL 200 MG/20 ML VIAL As Ordered ONE (10:34)
[2021-07-21] MEDS ORDERED: fentaNYL 100 MCG/2 ML INJECTION As Ordered ONE (10:34)
[2021-07-21 11:00] VITALS: BP 112/51
== END 2021-07-21 11:37 | disposition home or self-care (01) ==
LOC: M OPP 09:36
PROVIDERS: ATTEND Surgery
DX: D12.3 Benign neoplasm of transverse colon (principal); K57.30 Diverticulosis of large intestine without perforation or abscess without bleeding; K64.0 First degree hemorrhoids; R19.4 Change in bowel habit; K29.70 Gastritis, unspecified, without bleeding; K29.80 Duodenitis without bleeding; K22.89 Other specified disease of esophagus; R13.10 Dysphagia, unspecified; Z79.02 Long term (current) use of antithrombotics/antiplatelets; Z79.899 Other long term (current) drug therapy; Z86.711 Personal history of pulmonary embolism; Z86.718 Personal history of other venous thrombosis and embolism; F17.299 Nicotine dependence, other tobacco product, with unspecified nicotine-induced disorders
CPT/HCPCS: 43239; 45380; 88305; J3010

== ENCOUNTER → 2021-12-17 | Outpatient (CLI) | payer MEDICARE ==
[~2021-12-17] MED LIST changes: -NS 1,000 ML IV ONE
== END ==
LOC: M WHC 13:29
PROVIDERS: ATTEND Family Medicine
DX: Z12.31 Encounter for screening mammogram for malignant neoplasm of breast (principal)

== ENCOUNTER → 2022-02-23 | Outpatient (CLI) | payer MEDICARE | LOC: M SOG 07:53 | PROVIDERS: ATTEND Orthopaedic Surgery | DX: M54.50 Low back pain, unspecified (principal) ==

== ENCOUNTER 2022-03-23 12:58 | Inpatient (IN) | payer MEDICARE ==
[~2022-03-23] VITALS: Ht 160 cm; Wt 80.9 kg
[2022-03-23] MEDS: NS 1,000 ML IV SCH (03:40)
[2022-03-23] MEDS ORDERED: OMEP40CA5 (13:13)
[2022-03-23] MEDS ORDERED: DULO1CAP4 (13:13)
[2022-03-23] MEDS ORDERED: LORazepam 2 MG/ML VIAL IV STA ×2 (17:20→22:02)
[2022-03-23] MEDS ORDERED: NS 1,000 ML IV ONE ×2 (17:20→20:55)
[2022-03-23 18:21] LABS: BASO % 0.5 % (0.0-1.0); EOS % 0.2 % (0.0-3.0); HEMOGLOBIN 16.1 g/dl (12.0-15.5); LYMPH # 1.3 10^3/uL (1.5-5.0); MEAN CORPUSCULAR HEMOGLOBIN 31.1 pg (27.0-33.0); MEAN CORPUSCULAR HGB CONC 33.5 g/dl (32.0-36.5); MEAN CORPUSCULAR VOLUME 92.7 fl (80.0-96.0); MONO # 0.6 10^3/uL (0.0-0.8); MONO % 7.1 % (2.0-8.0); NEUTROPHILS # 6.7 10^3/uL (1.5-8.5); NEUTROPHILS % 76.9 % (36.0-66.0); PLATELET COUNT, AUTOMATED 173 10^3/uL (150-450); RED BLOOD COUNT 5.18 10^6/uL (4.00-5.40); WHITE BLOOD COUNT 8.7 10^3/uL (4.0-10.0)
[2022-03-23 18:33] LABS: INR 1.26; PARTIAL THROMBOPLASTIN TIME 28.3 SECONDS (24.8-34.2); PROTHROMBIN TIME 16.1 SECONDS (12.5-14.5)
[2022-03-23 18:42] LABS: ALBUMIN 4.7 G/DL (3.2-5.2); ALKALINE PHOSPHATASE 80 U/L (46-116); ALT/SGPT 15 U/L (7.0-40); AST/SGOT 19 U/L (<34); BILIRUBIN,TOTAL 0.7 MG/DL (0.3-1.2); TOTAL PROTEIN 7.5 G/DL (5.7-8.2)
[2022-03-23 18:43] LABS: BILIRUBIN,DIRECT 0.3 MG/DL (<0.4)
[2022-03-23 18:46] LABS: CPK CREATINE PHOSPHOKINASE 82 U/L (34-145)
[2022-03-23 19:14] LABS: CK-MB VALUE MASS < 1.0 NG/ML (<3.6); MB/CK RELATIVE INDEX 1.21 (< OR =4)
[2022-03-23 20:12] LABS: RSV AMPLIFICATION NEGATIVE (NEGATIVE)
[2022-03-23] MEDS ORDERED: DULO1CAP4 PO (22:09)
[2022-03-23] MEDS ORDERED: ALBU8.5H INH (22:09)
[2022-03-23] MEDS ORDERED: OMEP40CA5 PO (22:09)
[2022-03-23] MEDS ORDERED: HOME MED LIST COMPLETE! XX SCH (22:10)
[2022-03-23] MEDS ORDERED: ACETAMINOPHEN TAB 650MG DOSE (2X325MG) PO PRN (22:40)
[2022-03-23] MEDS ORDERED: MOM 30ML SUSPENSION UDC PO PRN (22:40)
[2022-03-23] MEDS ORDERED: HEPARIN SOD (PORCINE) 5000UNITS/ML 1ML VIAL/SYRINGE SC SCH (22:40)
[2022-03-23] MEDS ORDERED: LORazepam 2 MG/ML VIAL IV PRN (22:40)
[2022-03-24 07:02] LABS: HEMATOCRIT 43.7 % (36.0-47.0); HEMOGLOBIN 14.2 g/dl (12.0-15.5); MEAN CORPUSCULAR HEMOGLOBIN 30.9 pg (27.0-33.0); MEAN CORPUSCULAR HGB CONC 32.5 g/dl (32.0-36.5); MEAN CORPUSCULAR VOLUME 95.2 fl (80.0-96.0); PLATELET COUNT, AUTOMATED 140 10^3/uL (150-450); RED BLOOD COUNT 4.59 10^6/uL (4.00-5.40); WHITE BLOOD COUNT 6.9 10^3/uL (4.0-10.0)
[2022-03-24 07:56] LABS: BLOOD UREA NITROGEN 10 MG/DL (9-23); CALCIUM LEVEL 8.1 MG/DL (8.5-10.1); CARBON DIOXIDE LEVEL 24 MMOL/L (20-31); CHLORIDE LEVEL 111 MMOL/L (98-107); CREATININE FOR GFR 0.61 MG/DL (0.55-1.30); GLOMERULAR FILTRATION RATE > 60.0 (>51); GLUCOSE, FASTING 76 MG/DL (60-100); POTASSIUM SERUM 2.9 MMOL/L (3.5-5.1); SODIUM LEVEL 144 MMOL/L (136-145)
[2022-03-24 08:00] VITALS: BP 144/77
[2022-03-24] MEDS: POTASSIUM CHLORIDE 10MEQ SR TABLET PO SCH ×2 (08:35→12:01)
[2022-03-24 08:49] LABS: MAGNESIUM LEVEL 1.7 MG/DL (1.8-2.4)
[2022-03-24 08:50] LABS: PHOSPHORUS LEVEL 3.1 MG/DL (2.5-4.9)
[2022-03-24] MEDS ORDERED: ATORVASTATIN 20 MG TAB PO SCH (09:00)
[2022-03-24] MEDS ORDERED: TOPIRAMATE (TopAMAX) 100 MG TAB PO SCH (09:00)
[2022-03-24] MEDS: MAG SULF 1GM/100ML (MAG RUN) 1 GM in IV 1 EA IV SCH ×2 (12:01→13:50)
[2022-03-24] MEDS: NS 1,000 ML IV SCH (12:08)
[2022-03-24] MEDS ORDERED: PROPRANOLOL 10 MG TAB PO ONE (13:10)
[2022-03-24] MEDS ORDERED: BENZTROPINE 2 MG TAB PO PRN (13:15)
[2022-03-24] MEDS ORDERED: LORazepam 0.5 MG TAB PO PRN (13:15)
[2022-03-24] MEDS ORDERED: PROPRANOLOL 10 MG TAB PO PRN (13:15)
[2022-03-24 13:51] VITALS: BP 136/62
[2022-03-24 13:58] LABS: MAGNESIUM LEVEL 2.2 MG/DL (1.8-2.4)
[2022-03-24 14:00] VITALS: BP 129/63
[2022-03-24 14:00] LABS: BLOOD UREA NITROGEN 9 MG/DL (9-23); CALCIUM LEVEL 8.8 MG/DL (8.5-10.1); CARBON DIOXIDE LEVEL 25 MMOL/L (20-31); CHLORIDE LEVEL 109 MMOL/L (98-107); CREATININE FOR GFR 0.53 MG/DL (0.55-1.30); GLOMERULAR FILTRATION RATE > 60.0 (>51); GLUCOSE, FASTING 121 MG/DL (60-100); POTASSIUM SERUM 3.2 MMOL/L (3.5-5.1); SODIUM LEVEL 142 MMOL/L (136-145)
[2022-03-24] MEDS ORDERED: BENZ2TAB5 PO (14:25)
[2022-03-24] MEDS ORDERED: ATIV1TAB10 PO (14:25)
[2022-03-24] MEDS ORDERED: PROP10TA56 PO (14:25)
[2022-03-24] MEDS ORDERED: POTASSIUM CHLORIDE 10MEQ SR TABLET PO ONE (14:35)
[2022-03-24] MEDS ORDERED: RIVAROXABAN 20MG TAB (XARELTO) PO SCH (18:00)
== END 2022-03-24 16:39 | disposition home health service (06) | DRG 57 ==
LOC: M ED 18:48 → M ED INP 22:37
PROVIDERS: ADMIT Family Medicine; ATTEND Internal Medicine
DX: G25.71 Drug induced akathisia (principal); F41.9 Anxiety disorder, unspecified; E78.5 Hyperlipidemia, unspecified; G25.81 Restless legs syndrome; F31.9 Bipolar disorder, unspecified; M79.7 Fibromyalgia; M48.00 Spinal stenosis, site unspecified; R19.7 Diarrhea, unspecified; T43.595A Adverse effect of other antipsychotics and neuroleptics, initial encounter; Z86.711 Personal history of pulmonary embolism; Z86.718 Personal history of other venous thrombosis and embolism; Z91.51 Personal history of suicidal behavior; Z87.891 Personal history of nicotine dependence; Z79.01 Long term (current) use of anticoagulants; Z79.899 Other long term (current) drug therapy

== ENCOUNTER → 2022-09-14 | Outpatient (CLI) | payer MEDICARE ==
[~2022-09-14] MED LIST changes: +ALBU8.5H INH; +ATIV1TAB10 PO; +BENZ2TAB48 PO; +DULO1CAP4; +DULO1CAP4 PO; +LORA1TAB23 PO; -LORA1TAB4 PO; +OMEP40CA5; +OMEP40CA5 PO; +PROP10TA56 PO
[2022-09-14 14:15] LABS: BASO # 0.1 10^3/uL (0.0-0.2); EOS # 0.3 10^3/uL (0.0-0.5); EOS % 4.5 % (0.0-3.0); HEMATOCRIT 46.3 % (36.0-47.0); HEMOGLOBIN 14.6 g/dl (12.0-15.5); LYMPH # 1.9 10^3/uL (1.5-5.0); LYMPH % 31.2 % (24.0-44.0); MEAN CORPUSCULAR HEMOGLOBIN 29.8 pg (27.0-33.0); MEAN CORPUSCULAR HGB CONC 31.5 g/dl (32.0-36.5); MEAN CORPUSCULAR VOLUME 94.5 fl (80.0-96.0); MONO # 0.5 10^3/uL (0.0-0.8); MONO % 7.5 % (2.0-8.0); NEUTROPHILS # 3.3 10^3/uL (1.5-8.5); NEUTROPHILS % 55.5 % (36.0-66.0); PLATELET COUNT, AUTOMATED 171 10^3/uL (150-450)
[2022-09-14 14:36] LABS: HEMOGLOBIN A1c 5.2 % (4.0-6.0)
[2022-09-14 14:37] LABS: ERYTHROCYTE SEDIMENTATION RATE 42 mm/hr (0-30)
[2022-09-14 14:43] LABS: ALBUMIN 4.1 G/DL (3.2-5.2); ALKALINE PHOSPHATASE 96 U/L (46-116); ALT/SGPT 13 U/L (7.0-40); AST/SGOT 11 U/L (<34); BILIRUBIN,TOTAL 0.6 MG/DL (0.3-1.2); BLOOD UREA NITROGEN 13 MG/DL (9-23); CALCIUM LEVEL 10.1 MG/DL (8.5-10.1); CARBON DIOXIDE LEVEL 26 MMOL/L (20-31); CHLORIDE LEVEL 108 MMOL/L (98-107); CREATININE FOR GFR 0.67 MG/DL (0.55-1.30); GLOMERULAR FILTRATION RATE > 60.0 (>51); GLUCOSE, FASTING 77 MG/DL (60-100); POTASSIUM SERUM 3.8 MMOL/L (3.5-5.1); RHEUMATOID FACTOR QUANT 7.4 IU/ML (<14); SODIUM LEVEL 141 MMOL/L (136-145); TOTAL PROTEIN 7.4 G/DL (5.7-8.2)
[2022-09-14 14:45] LABS: FOLATE 20.6 NG/ML (>5.4); THYROID STIMULATING HORMONE 1.652 uIU/ML (0.55-4.78); VITAMIN B12 LEVEL 522 PG/ML (211-911)
[2022-09-19 13:07] LABS: ANTINUCLEAR ANTIBODIES DIRECT Negative (Negative); VITAMIN B1 LEVEL WHOLE BLOOD 121.6 nmol/L (66.5-200.0); VITAMIN B6,PYRIDOXAL PHOSPHATE 30.1 ug/L (3.4-65.2); VITAMIN E(GAMMA TOCOPHEROL) 2.1 mg/L (0.5-5.5)
== END ==
LOC: M LAB 13:01
PROVIDERS: ATTEND Psychiatry & Neurology Neurology
DX: R41.9 Unspecified symptoms and signs involving cognitive functions and awareness (principal); Z79.899 Other long term (current) drug therapy

== ENCOUNTER → 2022-10-12 | Outpatient (CLI) | payer MEDICARE | LOC: M RAD 13:57 | PROVIDERS: ATTEND Family Medicine | DX: Z12.2 Encounter for screening for malignant neoplasm of respiratory organs (principal); F17.211 Nicotine dependence, cigarettes, in remission ==

== ENCOUNTER → 2022-12-19 | Outpatient (CLI) | payer MEDICARE | LOC: M WHC 13:19 | PROVIDERS: ATTEND Family Medicine | DX: Z12.31 Encounter for screening mammogram for malignant neoplasm of breast (principal) ==

== ENCOUNTER 2022-12-31 12:59 | Emergency (ER) | payer MEDICARE ==
[~2022-12-31] VITALS: Ht 160 cm; Wt 107.3 kg
[2022-12-31] MEDS ORDERED: CHLO125TA (13:10)
[2022-12-31] MEDS ORDERED: TOPI-254 (13:10)
[2022-12-31] MEDS ORDERED: MIRT-11 (13:10)
[2022-12-31] MEDS ORDERED: LORAPOW30 (13:10)
[2022-12-31] MEDS ORDERED: POTASSIUM CHLORIDE 10MEQ SR TABLET PO ONE ×2 (14:05→17:10)
[2022-12-31] MEDS ORDERED: MAG SULF 1GM/100ML (MAG RUN) 1 GM in IV 1 EA IV ONE (14:05)
[2022-12-31 14:10] LABS: BASO # 0.1 10^3/uL (0.0-0.2); BASO % 0.9 % (0.0-1.0); EOS # 0.2 10^3/uL (0.0-0.5); HEMOGLOBIN 15.3 g/dl (12.0-15.5); LYMPH # 1.9 10^3/uL (1.5-5.0); LYMPH % 24.9 % (24.0-44.0); MEAN CORPUSCULAR HEMOGLOBIN 29.9 pg (27.0-33.0); MEAN CORPUSCULAR VOLUME 87.9 fl (80.0-96.0); MONO # 0.7 10^3/uL (0.0-0.8); MONO % 9.2 % (2.0-8.0); NEUTROPHILS # 4.7 10^3/uL (1.5-8.5); NEUTROPHILS % 61.6 % (36.0-66.0); PLATELET COUNT, AUTOMATED 180 10^3/uL (150-450); RED BLOOD COUNT 5.12 10^6/uL (4.00-5.40); WHITE BLOOD COUNT 7.6 10^3/uL (4.0-10.0)
[2022-12-31 14:26] LABS: INR 1.38; PROTHROMBIN TIME 16.6 SECONDS (12.5-14.5)
[2022-12-31 14:27] LABS: PARTIAL THROMBOPLASTIN TIME 33.4 SECONDS (24.8-34.2)
[2022-12-31] MEDS ORDERED: POTA1TAB24 PO (17:16)
[2022-12-31] MEDS ORDERED: HOLTER MONITOR XX (17:16)
[2022-12-31 17:35] VITALS: BP 118/64; TEMP 97.3; O2SAT 100
[2023-01-01 11:43] LABS: FREE T4 1.3 NG/DL (0.93-1.70); MAGNESIUM LEVEL 1.8 MG/DL (1.7-2.2); THYROID STIMULATING HORMONE 1.53 UIU/ML (0.47-5.01)
== END 2022-12-31 17:38 | disposition home or self-care (01) ==
LOC: M ED 12:59
DX: E87.6 Hypokalemia (principal); R00.2 Palpitations; J44.9 Chronic obstructive pulmonary disease, unspecified; E78.5 Hyperlipidemia, unspecified; F43.10 Post-traumatic stress disorder, unspecified; F41.9 Anxiety disorder, unspecified; Z86.718 Personal history of other venous thrombosis and embolism
CPT/HCPCS: 71045; 80047; 83735; 84439; 84443; 85025; 85610; 85730; 93005; 93041; 94760; 96365; 99285; J3475

== ENCOUNTER 2023-08-10 14:12 | Emergency (ER) | payer MEDICARE ==
[~2023-08-10] VITALS: Ht 160 cm; Wt 117.6 kg
[~2023-08-10 14:12] MED LIST changes: +CHLO125TA; +HOLTER MONITOR XX; +LORAPOW30; +MIRT-11; +POTA1TAB24 PO; +TOPI-21
[2023-08-10] MEDS ORDERED: FURO20TA2 (14:28)
[2023-08-10] MEDS ORDERED: MIRT-10 (14:28)
[2023-08-10] MEDS ORDERED: ATOR1TAB21 (14:28)
[2023-08-10] MEDS ORDERED: LORA1TAB23 (14:28)
[2023-08-10] MEDS ORDERED: VENL37.598 (14:28)
[2023-08-10] MEDS: IPRATROPIUM 0.5MG/ALBUTEROL 2.5MG INH SOL UD 3ML (DUONEB) NEB ONE (15:11)
[2023-08-10] MEDS: methylPREDNISolone 125MG 2ML VIAL IV ONE (15:33)
[2023-08-10 16:00] LABS: BASO # 0.1 10^3/uL (0.0-0.2); BASO % 0.8 % (0.0-1.0); EOS # 0.2 10^3/uL (0.0-0.5); EOS % 2.6 % (0.0-3.0); HEMATOCRIT 49.4 % (36.0-47.0); HEMOGLOBIN 16.2 g/dl (12.0-15.5); LYMPH # 2.3 10^3/uL (1.5-5.0); LYMPH % 29.5 % (24.0-44.0); MEAN CORPUSCULAR HEMOGLOBIN 29.7 pg (27.0-33.0); MEAN CORPUSCULAR HGB CONC 32.8 g/dl (32.0-36.5); MEAN CORPUSCULAR VOLUME 90.6 fl (80.0-96.0); MONO # 0.5 10^3/uL (0.0-0.8); MONO % 6.9 % (2.0-8.0); NEUTROPHILS # 4.6 10^3/uL (1.5-8.5); NEUTROPHILS % 59.9 % (36.0-66.0); PLATELET COUNT, AUTOMATED 183 10^3/uL (150-450); RED BLOOD COUNT 5.45 10^6/uL (4.00-5.40); WHITE BLOOD COUNT 7.7 10^3/uL (4.0-10.0)
[2023-08-10 16:12] LABS: INR 1.75; PARTIAL THROMBOPLASTIN TIME 33.5 SECONDS (24.8-34.2); PROTHROMBIN TIME 19.9 SECONDS (12.5-14.5)
[2023-08-10 16:29] LABS: ALBUMIN 4.2 G/DL (3.2-5.2); ALKALINE PHOSPHATASE 130 U/L (46-116); ALT/SGPT 28 U/L (7.0-40); AST/SGOT 19 U/L (<34); BILIRUBIN,DIRECT 0.3 MG/DL (<0.4); BILIRUBIN,TOTAL 0.8 MG/DL (0.3-1.2); BLOOD UREA NITROGEN 9 MG/DL (9-23); CALCIUM LEVEL 9.9 MG/DL (8.5-10.1); CARBON DIOXIDE LEVEL 25 MMOL/L (20-31); CHLORIDE LEVEL 104 MMOL/L (98-107); CK-MB VALUE MASS < 1.0 NG/ML (<3.6); CPK CREATINE PHOSPHOKINASE 60 U/L (34-145); GLOMERULAR FILTRATION RATE > 60.0 (>51); GLUCOSE, FASTING 93 MG/DL (60-100); MB/CK RELATIVE INDEX 1.66 (< OR =4); POTASSIUM SERUM 3.8 MMOL/L (3.5-5.1); SODIUM LEVEL 141 MMOL/L (136-145); TOTAL PROTEIN 7.3 G/DL (5.7-8.2)
[2023-08-10] MEDS ORDERED: LEVALBUTEROL 1.25MG 0.5ML CONCENTRATE NEB NEB PRN (16:40)
[2023-08-10] MEDS ORDERED: ISOVUE-370 76% 100ML VIAL As Ordered ONE (16:41)
[2023-08-10 16:52] LABS: ABG BASE EXCESS 2.1 (-2.0-2.0); ABG HCO3 22.5 MMOL/L (22.0-26.0); ABG O2 SATURATION 97.8 % (95.0-99.0); ABG PARTIAL PRESSURE CO2 25.7 mmHg (35.0-45.0); ABG PARTIAL PRESSURE O2 91.7 mmHg (75.0-100.0); ABG STANDARD HCO3 26.3 MMOL/L. (22.0-26.0); ABG TOTAL CO2 23.3 MMOL/L (22.0-29.0); ABG pH (ARTERIAL) 7.561 UNITS (7.350-7.450)
[2023-08-10 17:56] LABS: CK-MB VALUE MASS < 1.0 NG/ML (<3.6)
[2023-08-10 17:57] LABS: CPK CREATINE PHOSPHOKINASE 53 U/L (34-145); MB/CK RELATIVE INDEX 1.88 (< OR =4)
[2023-08-10] MEDS ORDERED: PRED20TA PO (18:28)
[2023-08-10] MEDS ORDERED: VENTAER INH (18:28)
[2023-08-10 19:18] VITALS: BP 141/66; TEMP 98; O2SAT 96
[2023-08-10 19:52] LABS: CK-MB VALUE MASS < 1.0 NG/ML (<3.6)
[2023-08-10 19:53] LABS: CPK CREATINE PHOSPHOKINASE 61 U/L (34-145); MB/CK RELATIVE INDEX 1.63 (< OR =4)
== END 2023-08-10 20:19 | disposition home or self-care (01) ==
LOC: M ED 14:12
DX: J44.1 Chronic obstructive pulmonary disease with (acute) exacerbation (principal); E78.5 Hyperlipidemia, unspecified; I45.81 Long QT syndrome; F12.10 Cannabis abuse, uncomplicated; Z79.51 Long term (current) use of inhaled steroids; Z79.52 Long term (current) use of systemic steroids; Z79.899 Other long term (current) drug therapy
CPT/HCPCS: 71045; 71275; 80048; 80076; 82550; 82553; 82803; 83880; 84484; 85025; 85610; 85730; 87486; 87581; 87633; 87798; 93005; 93041; 94640; 94760; 96374; 99284; J2919; Q9967

== ENCOUNTER 2023-10-27 10:41 | Emergency (ER) | payer MEDICARE ==
[~2023-10-27] VITALS: Ht 160 cm; Wt 119.0 kg
[~2023-10-27 10:41] MED LIST changes: +ATOR1TAB21; +FURO20TA2; +LORA1TAB23; +MIRT-10; +PRED20TA PO; +VENL37.598; +VENTAER INH
[2023-10-27 12:11] LABS: BASO # 0.1 10^3/uL (0.0-0.2); BASO % 0.9 % (0.0-1.0); EOS # 0.3 10^3/uL (0.0-0.5); EOS % 5.1 % (0.0-3.0); HEMATOCRIT 46.7 % (36.0-47.0); HEMOGLOBIN 15.1 g/dl (12.0-15.5); LYMPH # 1.6 10^3/uL (1.5-5.0); LYMPH % 29.4 % (24.0-44.0); MEAN CORPUSCULAR HEMOGLOBIN 30.4 pg (27.0-33.0); MEAN CORPUSCULAR HGB CONC 32.3 g/dl (32.0-36.5); MONO # 0.5 10^3/uL (0.0-0.8); MONO % 8.4 % (2.0-8.0); NEUTROPHILS # 3.1 10^3/uL (1.5-8.5); PLATELET COUNT, AUTOMATED 141 10^3/uL (150-450); RED BLOOD COUNT 4.97 10^6/uL (4.00-5.40); WHITE BLOOD COUNT 5.5 10^3/uL (4.0-10.0)
[2023-10-27 12:18] LABS: ERYTHROCYTE SEDIMENTATION RATE 19 mm/hr (0-30)
[2023-10-27 12:27] LABS: INR 1.89; PARTIAL THROMBOPLASTIN TIME 33.3 SECONDS (24.8-34.2); PROTHROMBIN TIME 21.1 SECONDS (12.5-14.5)
[2023-10-27 12:43] LABS: ALBUMIN 3.9 G/DL (3.2-5.2); ALKALINE PHOSPHATASE 115 U/L (46-116); ALT/SGPT 28 U/L (7.0-40); AST/SGOT 24 U/L (<34); BILIRUBIN,DIRECT 0.2 MG/DL (<0.4); BILIRUBIN,TOTAL 0.6 MG/DL (0.3-1.2); BLOOD UREA NITROGEN 18 MG/DL (9-23); CALCIUM LEVEL 9.2 MG/DL (8.5-10.1); CARBON DIOXIDE LEVEL 25 MMOL/L (20-31); CHLORIDE LEVEL 110 MMOL/L (98-107); CREATININE FOR GFR 0.67 MG/DL (0.55-1.30); GLOMERULAR FILTRATION RATE > 60.0 (>51); GLUCOSE, FASTING 120 MG/DL (60-100); POTASSIUM SERUM 4.4 MMOL/L (3.5-5.1); SODIUM LEVEL 141 MMOL/L (136-145); TOTAL PROTEIN 6.9 G/DL (5.7-8.2)
[2023-10-27] MEDS ORDERED: BUPR-71 (12:44)
[2023-10-27] MEDS ORDERED: PRED10TA2 PO (13:53)
[2023-10-27 14:05] VITALS: BP 145/81; TEMP 97.6; O2SAT 97
== END 2023-10-27 14:07 | disposition home or self-care (01) ==
LOC: M ED 10:41
DX: R23.3 Spontaneous ecchymoses (principal); J44.9 Chronic obstructive pulmonary disease, unspecified; F43.10 Post-traumatic stress disorder, unspecified; F31.9 Bipolar disorder, unspecified; Z87.891 Personal history of nicotine dependence; Z79.51 Long term (current) use of inhaled steroids; Z79.52 Long term (current) use of systemic steroids; Z79.899 Other long term (current) drug therapy

== ENCOUNTER → 2024-01-11 | Outpatient (CLI) | payer MEDICARE ==
[~2024-01-11] MED LIST changes: +BUPR-71
== END ==
LOC: M WHC 12:02
PROVIDERS: ATTEND Family Medicine
DX: Z12.31 Encounter for screening mammogram for malignant neoplasm of breast (principal)

== ENCOUNTER → 2025-02-27 | Outpatient (CLI) | payer MEDICARE ==
[~2025-02-27] MED LIST changes: +TOPI-14 PO; -TOPI200T7 PO
== END ==
LOC: M RAD 14:11
PROVIDERS: ATTEND Family Medicine
DX: R91.8 Other nonspecific abnormal finding of lung field (principal); J43.9 Emphysema, unspecified; I25.10 Atherosclerotic heart disease of native coronary artery without angina pectoris; K44.9 Diaphragmatic hernia without obstruction or gangrene; I70.0 Atherosclerosis of aorta; N28.1 Cyst of kidney, acquired; I72.8 Aneurysm of other specified arteries